=== PATIENT | female | born 1945 | race Caucasian/White ===

== ENCOUNTER 2017-07-11 12:18 | Outpatient (CLI) | payer MEDICARE, BC ==
--- NOTE | 2017-07-11 13:29 | ULT ---
HEPATIC DOPPLER EVALUATION: Indication: Right upper quadrant pain. FINDINGS: No focal hepatic lesion is evident. The liver longitudinally measures 12.2 cm. The gallbladder is wit hin normal limits without evidence of sonographic Calderon sign. Common bile duct measures 1.9 mm which is normal. Visualized portions of the pancreas were within normal limits. There is appropriate hepatobiliary flow seen within the hepatic vasculature. Appropriate flow is seen within the hepatic vein, splenic, and splenic artery. IMPRESSION: Normal examination. POS: [facility]
== END 2017-07-11 12:19 | disposition home or self-care (01) ==
LOC: SCSULT 12:18
PROVIDERS: ATTEND Internal Medicine Gastroenterology
DX: R10.11 Right upper quadrant pain (principal)
CPT/HCPCS: 76705